=== PATIENT | male | born 1985 | race Caucasian/White ===

== ENCOUNTER 2021-04-25 15:49 | Emergency (ER) | payer OTHER ==
[~2021-04-25] VITALS: Ht 170.2 cm; Wt 68.9 kg
== END 2021-04-25 19:18 | disposition home or self-care (01) ==
LOC: ER 15:49
DX: J31.2 Chronic pharyngitis (principal); J06.9 Acute upper respiratory infection, unspecified; B34.9 Viral infection, unspecified; Z20.822 Contact with and (suspected) exposure to COVID-19